=== PATIENT | female | born 1995 | race Caucasian/White ===

== ENCOUNTER 2016-07-03 15:14 | Emergency (ER) | payer MEDICAID, OTHER ==
[~2016-07-03] VITALS: Ht 160 cm; Wt 74.5 kg
[~2016-07-03 15:14] MED LIST: MMW SS
[2016-07-03 15:32] VITALS: BP 139/96; PULSE 76; RESP 18; TEMP 98; O2SAT 100
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
[2016-07-03 18:30] LABS: BASOPHIL # 0.1 TH/MM3 (0-0.2); BASOPHIL % 0.6 % (0.0-2.0); EOSINOPHIL # 0.4 TH/MM3 (0-0.4); EOSINOPHIL % 3.9 % (0.0-4.0); HEMATOCRIT 38.6 % (35.0-46.0); HEMO FLAGS DIFF FINAL; LYMPH % 21.3 % (9.0-44.0); LYMPHOCYTE # 2.2 TH/MM3 (1.0-4.8); MEAN CELL VOLUME 89.4 FL (80.0-100.0); MEAN CORPUSCULAR HEMOGLOBIN 30.4 PG (27.0-34.0); MONO % 5.8 % (0.0-8.0); NEUT % 68.4 % (16.0-70.0); PLATELET COUNT 169 TH/MM3 (150-450); RED BLOOD COUNT 4.32 MIL/MM3 (4.00-5.30); RED CELL DISTRIBUTION WIDTH 13.5 % (11.6-17.2); WHITE BLOOD COUNT 10.3 TH/MM3 (4.0-11.0)
[2016-07-03] MEDS ORDERED: CYCL7.5T33 PO (18:40)
[2016-07-03] MEDS ORDERED: IBUP-232 PO (18:40)
[2016-07-03] MEDS ORDERED: KETOROLAC TROMETHAMINE 30 MG/ML (IVP) VIAL IV PUSH ONE (18:45)
--- NOTE | 2016-07-03 19:55 | RADHPO ---
EXAM DATE/TIME: 07/03/2016 19:13 [facility] COMPARISON: No previous studies available for comparison. INDICATIONS : Cephalgia. Dizziness. Nausea. RADIATION DOSE: 61.68 CTDIvol (mGy) MEDICAL HISTORY : None SURGICAL HISTORY : None. ENCOUNTER: Initial ACUITY: 4 - 6 days PAIN SCALE: 8/10 LOCATION: cranial TECHNIQUE: Multiple contiguous axial images were obtained of the head. Using automated exposure control and adj ustment of the mA and/or kV according to patient size, radiation dose was kept as low as reasonably a chievable to obtain optimal diagnostic quality images. FINDINGS: There is no evidence for intracranial hemorrhage, mass effect, mass lesions, edema, or extra-axial fl uid collections. The visualized bony structures appear intact. The ventricles are normal size for t he patient's age. There are no signs of acute infarction for technique. CONCLUSION: Unremarkable study. Wali Hernandes MD on July 03, 2016 at 19:52 Board Certified Radiologist. This report was verified electronically.
--- NOTE | 2016-07-03 19:58 | RADHPO ---
EXAM DATE/TIME: 07/03/2016 19:13 [facility] COMPARISON: No previous studies available for comparison. INDICATIONS : Neck pain. RADIATION DOSE: 25.24 CTDIvol (mGy) MEDICAL HISTORY : None SURGICAL HISTORY : None. ENCOUNTER: Initial ACUITY: 4 - 6 days PAIN SCALE: 8/10 LOCATION: Bilateral neck TECHNIQUE: Volumetric scanning of the cervical spine was performed. Multiplanar reconstructions in the sagittal, coronal and oblique axial planes were performed. Using automated exposure control and adjustment o f the mA and/or kV according to patient size, radiation dose was kept as low as reasonably achievable to obtain optimal diagnostic quality images. FINDINGS: No significant subluxation or soft tissue swelling is seen. No definite fracture is seen for techniqu e. C2-C3: No appreciable compromised to the thecal sac, exiting nerve roots are seen. The neural sonya rebecca are patent bilaterally. No appreciable thecal sac stenosis is seen. C3-C4: No appreciable compromised to the thecal sac, exiting nerve roots are seen. The neural sonya rebecca are patent bilaterally. No appreciable thecal sac stenosis is seen. C4-C5: No appreciable compromised to the thecal sac, exiting nerve roots are seen. The neural sonya rebecca are patent bilaterally. No appreciable thecal sac stenosis is seen. C5-C6: No appreciable compromised to the thecal sac, exiting nerve roots are seen. The neural sonya rebecca are patent bilaterally. No appreciable thecal sac stenosis is seen. C6-C7: No appreciable compromised to the thecal sac, exiting nerve roots are seen. The neural sonya rebecca are patent bilaterally. No appreciable thecal sac stenosis is seen. C7-T1: No appreciable compromised to the thecal sac, exiting nerve roots are seen. The neural sonya rebecca are patent bilaterally. No appreciable thecal sac stenosis is seen CONCLUSION: Unremarkable study. Wali Hernandes MD on July 03, 2016 at 19:53 Board Certified Radiologist. This report was verified electronically.
[2016-07-03 20:03] VITALS: RESP 16
== END 2016-07-03 20:50 | disposition home or self-care (01) ==
LOC: PHED 15:14 → PHEFT 20:50
DX: S09.90XA Unspecified injury of head, initial encounter (principal); M54.2 Cervicalgia; W18.39XA Other fall on same level, initial encounter; V29.88XA Motorcycle rider (driver) (passenger) injured in other specified transport accidents, initial encounter; Y93.I9 Activity, other involving external motion; Y92.9 Unspecified place or not applicable; Y92.838 Other recreation area as the place of occurrence of the external cause; Y99.9 Unspecified external cause status; F17.210 Nicotine dependence, cigarettes, uncomplicated; E78.00 Pure hypercholesterolemia, unspecified
CPT/HCPCS: 70450; 72125; 85025; 96374; 99284; J1885

== ENCOUNTER 2016-07-12 20:14 | Emergency (ER) | payer MEDICAID ==
[~2016-07-12] VITALS: Ht 160 cm; Wt 75.4 kg
[~2016-07-12 20:14] MED LIST changes: +CYCL7.5T33 PO; +IBUP-232 PO; -MMW SS
[2016-07-12 20:27] VITALS: BP 139/84; PULSE 77; RESP 14; TEMP 98.6; O2SAT 100
[2016-07-12] MEDS ORDERED: SODIUM CHLORIDE 0.9% FLUSH 10 ML FLUSH IVF PRN (21:30)
[2016-07-12 21:55] VITALS: BP_SYST 130; BP_SYST 140; BP_DIAS 70; BP_DIAS 78
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
[2016-07-12 22:05] LABS: AUTOMATED NEUTROPHIL # 14.5 TH/MM3 (1.8-7.7); BASOPHIL % 0.2 % (0.0-2.0); BLOOD, URINE LARGE (NEG); EOSINOPHIL % 0.1 % (0.0-4.0); GLUCOSE,URINE NEG (NEG); HEMATOCRIT 39.8 % (35.0-46.0); HEMO FLAGS DIFF FINAL; KETONE, URINE NEG (NEG); LYMPH % 9.1 % (9.0-44.0); LYMPHOCYTE # 1.5 TH/MM3 (1.0-4.8); MEAN CELL VOLUME 88.3 FL (80.0-100.0); MEAN CORPUSCULAR HGB CONC 35.1 % (32.0-36.0); MONO % 3.5 % (0.0-8.0); NEUT % 87.1 % (16.0-70.0); NITRITE,URINE NEG (NEG); PLATELET COUNT 239 TH/MM3 (150-450); RED BLOOD COUNT 4.51 MIL/MM3 (4.00-5.30); RED CELL DISTRIBUTION WIDTH 12.8 % (11.6-17.2); WHITE BLOOD COUNT 16.6 TH/MM3 (4.0-11.0)
[2016-07-12 22:12] LABS: CHLORIDE 107 MEQ/L (98-107); POTASSIUM 3.6 MEQ/L (3.5-5.1); SODIUM (NA) 143 MEQ/L (136-145)
[2016-07-12 22:16] LABS: ANION GAP 9 MEQ/L (5-15); BICARBONATE 26.7 MEQ/L (21.0-32.0); BLOOD UREA NITROGEN 22 MG/DL (7-18); COMMENT (UR) CULT NOT INDICATED; CULTURE IF INDICATED CULT NOT INDICATED; MAGNESIUM 2.1 MG/DL (1.5-2.5); RBC, URINE 15-19 /hpf (0-3); SQUAMOUS EPITHELIAL CELL URINE 0-5 /hpf (0-5); URINE COLOR YELLOW (YELLW/STRAW); WBC, URINE 0-2 /hpf (0-5)
[2016-07-12 22:19] LABS: ALT (GPT) 19 U/L (10-53); AST (GOT) 7 U/L (15-37); GLOMERULAR FILTRATION RATE 51 ML/MIN (>89)
[2016-07-12 22:20] LABS: TOTAL BILIRUBIN ADULT 0.2 MG/DL (0.2-1.0)
[2016-07-12 22:22] LABS: ALKALINE PHOSPHATASE 83 U/L (45-117)
[2016-07-12 22:23] LABS: AMPHETAMINE, URINE NEG (NEG); BARBITURATES, URINE NEG (NEG)
[2016-07-12 22:28] LABS: COCAINE, URINE NEG (NEG)
--- NOTE | 2016-07-12 22:30 | RADHPO ---
EXAM DATE/TIME: 07/12/2016 21:57 [facility] COMPARISON: No previous studies available for comparison. INDICATIONS : Heart palpitations. MEDICAL HISTORY : None. SURGICAL HISTORY : None. ENCOUNTER: Initial ACUITY: 1 day PAIN SCORE: 0/10 LOCATION: Bilateral chest FINDINGS: There is a suboptimal inspiration. The heart is top normal in size. There is some crowding of the p ulmonary vasculature without overt pulmonary edema noted. No focal alveolar consolidation is noted to suggest pneumonia. CONCLUSION: 1. Suboptimal inspiration resulting in some crowding of the pulmonary vasculature. 2. No evidence of pneumonia or overt pulmonary edema. Thai Gregory MD on July 12, 2016 at 22:25 Board Certified Radiologist. This report was verified electronically.
[2016-07-12 23:30] VITALS: BP 140/81; PULSE 71; RESP 16; O2SAT 99
--- NOTE | 2016-07-12 23:42 | RADHPO ---
EXAM DATE/TIME: 07/12/2016 23:14 [place] COMPARISON: CT BRAIN W/O CONTRAST, July 03, 2016, 19:13. INDICATIONS : Cephalgia. Blurred vision. RADIATION DOSE: 63.37 CTDIvol (mGy) MEDICAL HISTORY : None SURGICAL HISTORY : None. ENCOUNTER: Initial ACUITY: 2 weeks PAIN SCALE: 7/10 LOCATION: Bilateral frontal TECHNIQUE: Multiple contiguous axial images were obtained of the head. Using automated exposure control and adj ustment of the mA and/or kV according to patient size, radiation dose was kept as low as reasonably a chievable to obtain optimal diagnostic quality images. FINDINGS: CEREBRUM: The ventricles are normal for age. No evidence of midline shift, mass lesion, hemorrhage or acute in farction. No extra-axial fluid collections are seen. POSTERIOR FOSSA: The cerebellum and brainstem are intact. The 4th ventricle is midline. The cerebellopontine angle i s unremarkable. EXTRACRANIAL: The visualized portion of the orbits is intact. SKULL: The calvaria is intact. No evidence of skull fracture. CONCLUSION: Stable noncontrast head CT. No acute intracranial abnormality is identified. Jorge Hendricks MD on July 12, 2016 at 23:38 Board Certified Radiologist. This report was verified electronically.
[2016-07-12 23:57] VITALS: TEMP 97.9
[2016-07-13] MEDS ORDERED: KETOROLAC TROMETHAMINE 30 MG/ML (IVP) VIAL IV PUSH ONE
[2016-07-13] MEDS ORDERED: ONDANSETRON HCL 4 MG/2 ML VIAL IV PUSH ONE
[2016-07-13] MEDS ORDERED: SODIUM CHLORID 0.9% 500 ML INJ 500 ML IV ONE
[2016-07-13] MEDS ORDERED: ZOFR4TAB3 SL (00:29)
--- NOTE | 2016-07-13 16:24 | EKG ---
Date Performed: 07/12/2016 Time Performed: 22:06:22 PTAGE: 21 years EKG: Sinus arrhythmia Normal ECG NO PREVIOUS TRACING DOCTOR: Juventino Walden Interpretating Date/Time 07/13/2016 16:21:49
== END 2016-07-13 01:02 | disposition home or self-care (01) ==
LOC: PHED 20:14
DX: F07.81 Postconcussional syndrome (principal); N28.9 Disorder of kidney and ureter, unspecified; I49.8 Other specified cardiac arrhythmias; R51 Headache
CPT/HCPCS: 70450; 71010; 80053; 80307; 81001; 83735; 84443; 84484; 84703; 85025; 85652; 93005; 96361; 96374; 96375; 99285; J1885; J2405; J7040